=== PATIENT | male | born 1935 | race Caucasian/White ===

== ENCOUNTER 2023-11-12 13:11 | Emergency (ER) | payer MEDICARE ==
[~2023-11-12] VITALS: Ht 175.3 cm; Wt 68.2 kg
[2023-11-12 13:19] VITALS: TEMP 97.7
[2023-11-12 13:54] LABS: BASO # 0.1 K/mm3 (0.0-0.2); BASO % 1.1 % (0.0-2.0); EOS # 0.3 K/mm3 (0.0-0.7); EOS % 3.2 % (0.0-4.0); GRAN % 58.4 % (42.2-75.2); HEMATOCRIT 39.3 % (42.0-52.0); HEMOGLOBIN 13.1 g/dl (13.5-18.0); LYMPH # 2.2 K/mm3 (1.2-3.4); LYMPH % 25.4 % (20.0-51.0); MEAN CELL VOLUME 92 fl (80.0-100.0); MEAN CORPUSCULAR HEMOGLOBIN 31 pg (27-31); MEAN CORPUSCULAR HGB CONC 33 g/dl (33.0-37.0); MONO % 11.5 % (1.7-9.3); PLATELET COUNT 274 K/mm3 (130-400); RED BLOOD COUNT 4.27 M/mm3 (4.20-5.60); REDCELL DISTRIBUTION WIDTH-CV 14.6 % (11.5-14.5)
[2023-11-12 14:23] LABS: ALANINE AMINOTRANSFERASE 20 U/L (0-55); ALBUMIN 4.3 gm/dL (3.4-4.8); ALKALINE PHOSPHATASE 50 U/L (40-150); ANION GAP 11 mmol/L (7-16); AST,SGOT 26 U/L (5-34); BILIRUBIN,TOTAL 0.3 mg/dL (0.2-1.2); BLOOD UREA NITROGEN 29 mg/dL (8-26); CALCIUM 10.5 mg/dL (8.4-10.2); CARBON DIOXIDE 21 mmol/L (23-31); CHLORIDE 104 mmol/L (98-107); CREATININE, serum 1.34 mg/dL (0.72-1.25); GLUCOSE 106 mg/dL (70-99); POTASSIUM 4.9 mmol/L (3.5-4.5); SODIUM 136 mmol/L (136-145); TOTAL PROTEIN 7.2 gm/dL (6.2-8.1)
[2023-11-12 14:26] LABS: TROPONIN-I < 0.010 ng/mL (0.00-0.033)
[2023-11-12] MEDS ORDERED: Mag/Al Hydrox/Simeth Susp 30 ML CUP PO ONE (14:45)
[2023-11-12 15:33] VITALS: BP 161/93; PULSE 87
== END 2023-11-12 15:38 | disposition home or self-care (01) ==
LOC: COL.ER 13:11
PROVIDERS: Family Medicine
DX: K21.9 Gastro-esophageal reflux disease without esophagitis (principal); Z79.899 Other long term (current) drug therapy